=== PATIENT | male | born 1955 | race Hispanic/Latino ===

== ENCOUNTER 2021-06-11 15:54 | Emergency (ER) | payer BC ==
[~2021-06-11] VITALS: Ht 175.3 cm; Wt 90.7 kg
[~2021-06-11 15:54] MED LIST: ASPI-1197 PO; LOSA50TA64 PO
[2021-06-11 16:12] VITALS: BP 153/92
[2021-06-11] MEDS ORDERED: HYDROCODONE/ACETAMINOPHEN 5/325 MG TAB ONE (17:43)
[2021-06-11 18:00] VITALS: BP 128/72
[2021-06-11] MEDS ORDERED: HYDROCODONE/ACETAMINOPHEN 5/325 MG TAB PO ONE (18:30)
== END 2021-06-11 18:39 | disposition home or self-care (01) ==
LOC: EDH 15:54
DX: S16.1XXA Strain of muscle, fascia and tendon at neck level, initial encounter (principal); S40.012A Contusion of left shoulder, initial encounter; S40.022A Contusion of left upper arm, initial encounter; S80.812A Abrasion, left lower leg, initial encounter; S00.31XA Abrasion of nose, initial encounter; M62.830 Muscle spasm of back; I10 Essential (primary) hypertension; Z88.0 Allergy status to penicillin; Z79.82 Long term (current) use of aspirin; Z90.49 Acquired absence of other specified parts of digestive tract; Z79.899 Other long term (current) drug therapy; V49.49XA Driver injured in collision with other motor vehicles in traffic accident, initial encounter; Y93.89 Activity, other specified; Y92.89 Other specified places as the place of occurrence of the external cause; Y99.8 Other external cause status
CPT/HCPCS: 70450; 71045; 72125; 73030; 73060; 73070